=== PATIENT | male | born 1950 | race Caucasian/White ===

== ENCOUNTER 2019-11-22 09:52 | Observation (INO) | payer MEDICARE, OTHER ==
[2019-11-22] MEDS ORDERED: SODIUM CHLORIDE 0.9% (FLUSH) 10 ML SYG IV PRN ×2 (09:59→14:21)
[2019-11-22] MEDS: ONDANSETRON INJ 4 MG/2 ML VIAL IV ONE ×2 (10:31→10:36)
--- NOTE | 2019-11-22 10:37 | ED.PDOC ---
History of Present Illness - General Chief Complaint: Cardiovascular Problem Stated Complaint: Low BP Time Seen by Provider: 11/22/19 09:59 Source: patient, RN notes reviewed, Vital Signs reviewed, EMS notes reviewed Exam Limitations: no limitations - History of Present Illness Initial Comments: Patient is a 68-year-old white male who presents with complaints of near syncope, dizziness and malaise and fatigue. The dizziness is worsened when he attempts to stand up. It resolves when he sits down or lays down. Patient denies any headaches, blurry vision, chest pain, shortness of breath, vomiting, diarrhea. Patient does have dizziness upon standing and nausea when he stands up. Patient states he has lost over 150 pounds in the last year and has not adjusted any of his blood pressure medications. Timing/Duration: 1-3 hours Severity: moderate Activities at Onset: other - Standing Prior Chest Pain/Cardiac Workup: no prior cardiac workup Improving Factors: other - Laying down Worsening Factors: other - Standing up Nitro Today/Relief: no nitro taken today Associated Symptoms: malaise, nausea/vomiting - Nausea only, syncope - Near syncope, weakness Allergies/Adverse Reactions: Allergies NO KNOWN ALLERGY Allergy (Verified 11/22/19 10:09) Home Medications: Ambulatory Orders Duloxetine HCl [Cymbalta] 60 mg PO DAILY 11/22/19 Fluticasone Propionate (Nasal) [Fluticasone Propionate] 1 spray YULISA DAILY 11/22/19 Gabapentin 300 mg PO TID 11/22/19 Lisinopril 10 mg PO DAILY 11/22/19 Oxycodone W/ Acetaminophen [Endocet 10-325 mg] 1 tab PO TID 11/22/19 tiZANidine [Zanaflex] 4 mg PO BEDTIME 11/22/19 traZODone HCL [Desyrel] 100 mg PO BEDTIME 11/22/19 Review of Systems - Review of Systems Constitutional: States: see HPI, malaise, weakness EENTM: States: blurred vision - Only when he stands up and nearly passes out Respiratory: States: no symptoms reported Cardiology: States: no symptoms reported. Denies: chest pain, palpitations, syncope Gastrointestinal/Abdominal: States: no symptoms reported Genitourinary: States: no symptoms reported Musculoskeletal: States: no symptoms reported Skin: States: no symptoms reported Neurological: States: see HPI, weakness Endocrine: States: no symptoms reported Hematologic/Lymphatic: States: no symptoms reported All other Systems: Reviewed and Negative Past Medical History (General) - Patient Medical History Hx Stroke: No Hx Congestive Heart Failure: No Hx Hypertension: Yes Hx Diabetes: No Hx Gastroesophageal Reflux: Yes - Vaccination History Hx Tetanus, Diphtheria Vaccination: No Hx Influenza Vaccination: No Hx Pneumococcal Vaccination: No - Social History Hx Tobacco Use: No Hx Alcohol Use: No Hx Substance Use: No Family Medical History - Family History Father Living Status: Hx Cardiac Disease: Yes Physical Exam - Physical Exam General Appearance: Alert, Comfortable, Obese, Well Developed, Well Groomed, Well Hydrated, Well Nourished Eyes, Ears, Nose, Throat Exam: PERRL/EOMI, normal ENT inspection, pharynx normal Neck: non-tender, full range of motion, supple, normal inspection Respiratory: chest non-tender, lungs clear, normal breath sounds, no respiratory distress, no accessory muscle use Cardiovascular/Chest: normal peripheral pulses, no edema, no gallop, no JVD, no murmur, irregularly irregular Peripheral Pulses: radial,right: 2+, radial,left: 2+ Gastrointestinal/Abdominal: normal bowel sounds, non tender, soft, no organomegaly, no pulsatile mass, other - Patient is morbidly obese Extremity: normal range of motion, non-tender, normal inspection, no pedal edema, no calf tenderness Neurologic: recreational counselor II-XII nml as tested, no motor/sensory deficits, alert, normal mood/affect, oriented x 3 Skin Exam: normal color, warm/dry Lymphatic: no adenopathy Progress - Progress Progress: Differential diagnosis: Near syncope, acute OR, dehydration, medication reaction among others. 11/22/19 11:29 Patient's blood pressure has improved from a systolic of 60 in the field by EMS to systolic 80 1:06 liter fluid. Plan on admission for further observation and IV fluid management. I discussed the plan of care with the patient. He is s omewhat reluctant to come in but is willing to do so. I discussed this with Orlin Maynard NP and he accepts the patient for admission. 11/22/19 11:36 Hipolito Murphy M.D. #[id number] - Results/Orders Results/Orders: EKG performed on 22 November 2019 at 1022 hrs.: Atrial fibrillation with PVCs, nonspecific intraventricular conduction block, abnormal EKG. No comparison EKG. EXAM DESCRIPTION: Chest x-ray,1 View CLINICAL HISTORY: 69 years Male, Near syncope COMPARISON: None. TECHNIQUE: AP portable chest. FINDINGS: Heart size is large with centrally increased pulmonary vascularity. No consolidating infiltrate. Both hemidiaphragms are elevated. Discoid atelectasis in the right lung base. Enchondroma in the proximal left humerus. No pulmonary mass or worrisome nodule. No pneumothorax or pleural effusion. IMPRESSION: Discoid atelectasis in the right lung base. Electronically signed by: Neptali Chow MD 11/22/2019 10:44 11/22/19 09:59 Sodium Chloride 0.9% (Flush) [Saline Flush Syringe] 10 ml IV PRN PRN EKG Stat Pulse Ox Stat Laboratory Results - last 24 hr 11/22/19 09:50 WBC 9.1 RBC 5.14 Hgb 16.4 Hct 49.4 MCV 96.2 H MCH 31.9 H MCHC 33.1 RDW 14.0 Plt Count 214 MPV 9.3 Absolute Neuts (auto) 6.00 Absolute Lymphs (auto) 2.30 Absolute Monos (auto) 0.60 Absolute Eos (auto) 0.10 Absolute Basos (auto) 0.10 Neutrophils % 66.1 Lymphocytes % 25.3 Monocytes % 7.0 Eosinophils % 1.0 Basophils % 0.6 PT 11.3 H INR 1.14 PTT (SP) 26.4 Sodium 134 L Potassium 3.2 L Chloride 91 L Carbon Dioxide 28 Anion Gap 18.2 H BUN 26 H Creatinine 1.14 BUN/Creatinine Ratio 22.8 H Random Glucose 134 H Serum Osmolality 275.0 Calcium 9.7 Magnesium 1.7 L Creatine Kinase 26 L CK-MB (CK-2) 1.3 CK-MB (CK-2) % Not Reportable Troponin I 0.02 B-Natriuretic Peptide 81.1 Departure - Departure Clinical Impression: Postural dizziness with near syncope, Morbid obesity Hypotension Qualifiers: Hypotension type: hypotension due to drug Qualified Code(s): I95.2 - Hypotension due to drugs Time of Disposition: 11:35 Disposition: Admit Patient Condition: Fair Referrals: TOSHIA PINTO [Primary Care Provider] - 1-2 Weeks Home Medications: Ambulatory Orders Duloxetine HCl [Cymbalta] 60 mg PO DAILY 11/22/19 Fluticasone Propionate (Nasal) [Fluticasone Propionate] 1 spray YULISA DAILY 11/22/19 Gabapentin 300 mg PO TID 11/22/19 Lisinopril 10 mg PO DAILY 11/22/19 Oxycodone W/ Acetaminophen [Endocet 10-325 mg] 1 tab PO TID 11/22/19 tiZANidine [Zanaflex] 4 mg PO BEDTIME 11/22/19 traZODone HCL [Desyrel] 100 mg PO BEDTIME 11/22/19 Decision To Admit - Decistion To Admit Decision to Admit Reason: Admit from ER Decision to Admit Date: 11/22/19 Decision to Admit Time: 11:36
--- NOTE | 2019-11-22 10:46 | RAD ---
EXAM DESCRIPTION: Chest x-ray,1 View CLINICAL HISTORY: 69 years Male, Near syncope COMPARISON: None. TECHNIQUE: AP portable chest. FINDINGS: Heart size is large with centrally increased pulmonary vascularity. No consolidating infiltrate. Both hemidiaphragms are elevated. Discoid atelectasis in the right lung base. Enchondroma in the proximal left humerus. No pulmonary mass or worrisome nodule. No pneumothorax or pleural effusion. IMPRESSION: Discoid atelectasis in the right lung base. Electronically signed by: Neptali Chow MD 11/22/2019 10:[address] [facility]
--- NOTE | 2019-11-22 11:59 | HP ---
SUPERVISING PHYSICIAN: Rafael Parrish M.D. CHIEF COMPLAINT: Near syncopal episode. HISTORY OF PRESENT ILLNESS: Mr. Lockett is a 69 year-old male patient that has a history of morbid obesity that presented to the Emergency Room today complaining of near syncopal episode, dizziness, malaise and fatigue. He noted that the dizziness was worse when he stood up but resolved when he was sitting. He denied any vision changes, other focal deficits, shortness of breath,nausea or vomiting. The patient has a history of morbid obesity and has recently lost 150 pounds in the last year by diet, but has not seen his primary care provider to have his blood pressure medicines adjusted. Initially in the Emergency Room his blood pressure was 89/54, heart rate 91, satting 91% on room air. He was given 1 liter of fluid which did help improve his blood pressure prior to admission that improved to 91/45, but he was still showing dizziness on standing. Laboratory studies were essentially within normal limits on CBC with chemistry showing a low sodium at 134, potassium was low at 3.2 and BUN was elevated at 26, creatinine 1.14. Magnesium was a little low at 1.7. Troponin was within normal limits. BNP was normal. The patient is now going to be placed in observation for continued cardiac monitoring and fluids for orthostatic hypertension. He was placed in observation in stable condition. PAST MEDICAL HISTORY: 1. Obesity. 2. Insomnia. 3. Hypertension. 4. Bipolar disorder. PAST SURGICAL HISTORY: 1. Detached retina of the right eye. HOME MEDICATIONS: 1. Lisinopril 10 mg daily. 2. Duloxetine 60 mg daily. 3. Trazodone 100 mg at bedtime. 4. Oxycodone 10/325 one t.i.d. 5. Gabapentin 300 mg t.i.d. 6. Fluticasone propionate 1 spray nasally daily. ALLERGIES: NO KNOWN DRUG ALLERGIES. FAMILY HISTORY: Mother in her 80s, had complications from diabetes. Dad at age 89 from congestive heart failure. He has 1 brother that was killed in a car accident in 1963. He has 1 sister that is healthy. SOCIAL HISTORY: The patient does not smoke or drink. He is disabled. Lives in [place]. He is single. Does not use any illicit drugs. REVIEW OF SYSTEMS: CONSTITUTIONAL: As noted in History of Present Illness, general malaise and weakness. HEENT: Denies any headaches, sore throat, nasal congestion or ear aches. Does have some blurred vision with dizziness associated with standing. RESPIRATORY: Denies any shortness of breath, wheezing or coughing. CARDIOVASCULAR: Denies any chest pains, palpitations. Positive for presyncopal episodes. GASTROINTESTINAL: Negative for nausea, vomiting, diarrhea, constipation or abdominal pain. GENITOURINARY: Denies any dysuria, hematuria, polyuria. MUSCULOSKELETAL: Denies any joint swelling or arthralgias. SKIN: Denies any recent changes, moles, lesions or rashes. NEUROLOGIC: As noted in history of present illness, generalized weakness associated with dizziness and hypotension, but denies any ataxia, seizures or other focal deficits. HEMATOLOGIC: Denies any easy bruising, unexplained bleeding or transfusion reactions. PHYSICAL EXAMINATION: VITAL SIGNS: Initial vital signs in the Emergency Room showed temperature 97.2, pulse 91, blood pressure 89/54, respirations 18, satting 91 to 95% on room air. Admission weight 138 kg. GENERAL: The patient is morbidly obese but well groomed and well hydrated. He is alert. Appears to be in no acute distress. HEENT: Tympanic membranes clear bilaterally. Oropharynx is pink, moist without any lesions. NECK: Supple, nontender with full range of motion. No jugular venous distention noted. CHEST: Lungs clear to auscultation bilaterally without any rhonchi, wheezes or rales. HEART: Regular rate and rhythm without any appreciable murmurs, gallops, or rubs. ABDOMEN: Obese but soft, nontender. Positive bowel sounds. EXTREMITIES: There is no cyanosis, clubbing or edema. NEUROLOGIC: Cranial nerves II-XII are grossly intact. He denies any motor or sensory deficits. Extraocular movements are within normal limits. There is no nystagmus noted. Facial features are symmetrical. He is alert and oriented times three. SKIN: Warm, pink and dry. LABORATORY: CBC shows white count 9,100, hemoglobin 16.4, hematocrit 49.4, platelet count 214,000. Differential showed to be without a left shift. Coagulation studies showed normal PT and PTT. Chemistry showed sodium 134, potassium 3.2, BUN 26, creatinine 1.14, glucose 134, magnesium 1.7. Troponin was normal. BNP was normal at 81. RADIOLOGY: Chest x-ray in the Emergency Room, single view chest, showed discoid atelectasis in the right lung base. ASSESSMENT: 1. Near syncopal episode, uncertain etiology, possibly related to weight loss and continuing blood pressure medicines, and exacerbated by hypovolemia without any signs of acute bleed. 2. Dehydration probably contributing to #1. 3. Hypertension on Lisinopril but showing to be hypotensive. 4. Bipolar. 5. Chronic insomnia. PLAN: Mr. Lockett is going to be placed in observation for cardiac telemetry and neurological status monitoring. He will be given a fluid bolus and then will follow this up with maintenance fluids. Will get a set of orthostatic blood pressures later today and tomorrow. Will hold his blood pressure medicines and review his medications and adjust as needed. I would anticipate his length of stay to be 1 to 2 days. I have also ordered carotid studies given that he had a near syncopal episode. Until we can transition him to outpatient management will continue to monitor and treat as needed. #[id number] MTDD
[2019-11-22] MEDS ORDERED: ONDANSETRON INJ 4 MG/2 ML VIAL IV PRN (14:21)
[2019-11-22] MEDS ORDERED: ACETAMINOPHEN 325 MG TAB PO PRN (14:21)
[2019-11-22] MEDS ORDERED: MAGNESIUM SULFATE PREMIX 2GM 2 GM in PREMIX BAG 1 BAG IVPB ONE (14:23)
[2019-11-22] MEDS ORDERED: SODIUM CHLORIDE 0.9% 1000ML 1,000 ML IVS ONE (14:24)
[2019-11-22] MEDS ORDERED: IV SET AND CAP CHANGE INJ INJ SCH (14:30)
[2019-11-22] MEDS ORDERED: MAGNESIUM SULFATE PREMIX 2GM 50 ML IVPB ONE (14:39)
--- NOTE | 2019-11-22 15:21 | US ---
EXAM DESCRIPTION: Carotid Duplex: ULTRASOUND. CLINICAL HISTORY: 69 years Male syncope COMPARISON: Chest radiograph on this visit. TECHNIQUE: Transcutaneous scanning utilizing haines-scale and Doppler modes to evaluate the bilateral carotid systems and vertebral arteries. Percentage of diameter of stenosis or no stenosis recorded will be based upon NASCET criteria. FINDINGS: Peak systolic/end diastolic (CM-Sec) CCA Right 76/16 Left 89/16. ICA Right proximal 70/14, mid 57/21. Left proximal 60/22, Distal 66/19. Vertebral Right 49/11 Left 58/18. ECA (PS Only) Right 88 left 92. ICA/CCA peak systolic ratio: Right 0.9 Left 0.7 ICA/CCA end diastolic ratio: Right 0.9 Left 1.2 Vertebral arteries: antegrade flow. Comments: Bilateral atherosclerotic calcification. Spectral broadening in the right common carotid bulb and the right ICA. Area and diameter stenoses of the right common carotid bulb and proximal right ICA are less than 30%. Spectral broadening in the left common carotid bulb and the proximal left ICA. Area stenosis and diameter stenosis of the distal left CCA bulb and the proximal left ICA are 35% or less. IMPRESSION: 1. Doppler evaluation of the bilateral carotid systems and vertebral arteries shows no hemodynamically significant stenoses. 2. No significant amount of plaque seen in the carotid arteries bilaterally. Bilateral vertebral arteries showed antegrade-cephalad flow. Electronically signed by: Marquise Haro MD 11/22/2019 3:19 PM [facility]DOOR GUIDE
[2019-11-22] MEDS: KCL 20 MEQ/NS 1,000 ML IVS PRN (16:12)
[2019-11-22] MEDS ORDERED: tiZANidine 4 MG TAB PO SCH (21:00)
[2019-11-22] MEDS ORDERED: traZODone HCL 100 MG TAB PO SCH (21:00)
[2019-11-22] MEDS: GABAPENTIN 300 MG CAP PO SCH (21:22)
[2019-11-23] MEDS: KCL 20 MEQ/NS 1,000 ML IVS PRN ×2 (00:11→08:27)
[2019-11-23] MEDS ORDERED: DULoxetine HCL 30 MG CAP PO SCH (09:00)
[2019-11-23] MEDS ORDERED: ENOXAPARIN SODIUM 40 MG/0.4 ML SYG SUBCU SCH (09:00)
[2019-11-23] MEDS: GABAPENTIN 300 MG CAP PO SCH (09:23)
[2019-11-23 10:40] VITALS: TEMP 98.1
[2019-11-23 10:47] VITALS: BP 120/76; O2SAT 92
--- NOTE | 2019-11-25 09:30 | DS ---
SUPERVISING PHYSICIAN: Rafael Parrish M.D. ADMISSION DIAGNOSES: 1. Near syncopal episode secondary to hypovolemia from dehydration, showing improvement with fluids. 2. Dehydration probably contributing to #1, improved with fluids. 3. Hypertension on Lisinopril but showing to be hypotensive. 4. Bipolar. 5. Chronic insomnia. DISCHARGE DIAGNOSES: 1. Near syncopal episode, uncertain etiology, possibly related to weight loss and continuing blood pressure medicines, and exacerbated by hypovolemia without any signs of acute bleed. 2. Dehydration probably contributing to #1. 3. Hypertension on Lisinopril possibly contributing to #1 with medications held at discharge awaiting outpatient evaluation. 4. Bipolar. 5. Chronic insomnia. REASON FOR HOSPITALIZATION: Mr. Lockett is a 69 year-old male patient that has a history of morbid obesity that presented to the Emergency Room today complaining of near syncopal episode, dizziness, malaise and fatigue. He noted that the dizziness was worse when he stood up but resolved when he was sitting. He denied any vision changes, other focal deficits, shortness of breath,nausea or vomiting. The patient has a history of morbid obesity and has recently lost 150 pounds in the last year by diet, but has not seen his primary care provider to have his blood pressure medicines adjusted. Initially in the Emergency Room his blood pressure was 89/54, heart rate 91, satting 91% on room air. He was given 1 liter of fluid which did help improve his blood pressure prior to admission that improved to 91/45, but he was still showing dizziness on standing. Laboratory studies were essentially within normal limits on CBC with chemistry showing a low sodium at 134, potassium was low at 3.2 and BUN was elevated at 26, creatinine 1.14. Magnesium was a little low at 1.7. Troponin was within normal limits. BNP was normal. The patient is now going to be placed in observation for continued cardiac monitoring and fluids for orthostatic hypertension. He was placed in observation in stable condition. LABORATORY STUDIES: CBC showed to be was negative. Coagulation studies within normal limits. Chemistries on discharge showed sodium 134, potassium 4.3, creatinine 0.73, calcium 9.2, magnesium was a little low at 1.7, replacement normalized and BNP was normal at 81. Troponin was negative at 0.02. RADIOLOGY: Chest x-ray, single-view, showed discoid atelectasis in the right lung base. He had a carotid artery study done showed per radiology interpretation bilateral carotid systems of the vertebral arteries showed no hemodynamically significant stenosis with no significant amount of plaque seen in the carotid arteries bilaterally. The bilateral vertebral arteries showed antegrade-cephalad flow. HOSPITAL COURSE: Mr. Lockett was admitted for near syncopal episode and some hypotension. His initial vital signs in the Emergency Room did show he was hypertensive with a blood pressure of 89/64, heart rate 91. He was given fluids and blood pressures were showing to be improved. He had an orthostatic check prior to discharge with his supine blood pressure showing to be 117/66, orthostatic was 107/76 and standing was 120/76. Heart rate went from 78 to 107. Oxygen saturation 96% on room air. He had no recurrence of any symptoms regarding dizziness or near syncopal episodes. His bus monitor showed normal sinus rhythm with no significant changes. No abnormal rhythms. He had no chest pain. He had no shortness of breath. He was able to ambulate without any complications and felt to be clinically stable enough to continue with outpatient management. PLAN: Mr. Lockett is discharged on November 23 to followup with his primary care physician, Allan Walters, the following week. He was to resume his usual diet. He is to increase activities as tolerated. He was encouraged to push fluids for dehydration and instructed to hold his lisinopril until he was seen in followup. He was instructed to keep a blood pressure log and take with him to see Dr. Walters to help in management of his blood pressure. He was told to return to the Emergency Room if needed. DISCHARGE MEDICATIONS: 1. Trazodone 100 mg at bedtime. 2. Zanaflex 4 mg at bedtime. 3. Oxycodone with acetaminophen, 1 tablet 3 times a day. 4. Gabapentin 300 mg 3 times a day. 5. Flonase as needed. 6. Cymbalta 60 mg daily. His lisinopril 10 mg daily is to be held until seen in followup by Dr. Walters. CONDITION ON DISCHARGE: Stable and improved. DISPOSITION: Patient was discharged home. #[id number] [facility]
== END 2019-11-23 12:48 | disposition home or self-care (01) ==
LOC: ER 09:52 → MS 11:58
PROVIDERS: ADMIT Nurse Practitioner Family; ATTEND Nurse Practitioner Family
DX: I95.1 Orthostatic hypotension (principal); E87.6 Hypokalemia; E83.42 Hypomagnesemia; E86.1 Hypovolemia; E86.0 Dehydration; I10 Essential (primary) hypertension; F31.9 Bipolar disorder, unspecified; F51.04 Psychophysiologic insomnia; E66.01 Morbid (severe) obesity due to excess calories; K21.9 Gastro-esophageal reflux disease without esophagitis; I48.91 Unspecified atrial fibrillation; I45.4 Nonspecific intraventricular block; I49.3 Ventricular premature depolarization; J98.11 Atelectasis; D16.02 Benign neoplasm of scapula and long bones of left upper limb; Z68.39 Body mass index [BMI] 39.0-39.9, adult; Z79.899 Other long term (current) drug therapy; Z83.3 Family history of diabetes mellitus; Z82.49 Family history of ischemic heart disease and other diseases of the circulatory system
CPT/HCPCS: 96361; 96366 ×2; 96367; 96365; 96372; J7030; J1650; J3475; J3480 ×3; 80048 ×2; 36415; 82550; 82553; 85025; 85730; 85610; 84484; 83880; 71045; 93880; 94760 ×3; 99285; 93005; G0378